=== PATIENT | female | born 1975 ===

== ENCOUNTER 2024-12-15 08:00 | Day surgery (SDC) | payer OTHER ==
[2024-12-08 14:48] VITALS: BP 151/90
[~2024-12-15] VITALS: Ht 157.5 cm; Wt 83.0 kg
[~2024-12-15 08:00] MED LIST: LOSARTAN-HCTZ1 EACH PO; NORETHIND-ETH1 EAC1 PO; SINGULAIR10 MG PO; ZYRTEC10 M3 PO
[2024-12-15] MEDS ORDERED: POVIDONE-IODINE 118 ML BOTT TOP ONE (08:32)
[2024-12-15] MEDS ORDERED: HEMOSTATIC MATRIX 1 KIT KIT TOP ONE (08:32)
[2024-12-15] MEDS ORDERED: DIBUCAINE 30 GM TUBE ONE (08:32)
[2024-12-15] MEDS ORDERED: LIDOCAINE HCL 1%/EPINEPHRINE 20ML VIAL IJ ONE (08:34)
[2024-12-15] MEDS ORDERED: CEFTRIAXONE SODIUM 2,000 MG VIAL ONE (08:34)
[2024-12-15] MEDS ORDERED: METRONIDAZOLE/SODIUM CHLORIDE 500 MG/100 ML PIGGYBACK IV ONE ×2 (08:34→10:19)
[2024-12-15] MEDS ORDERED: NEURONTIN300 MG PO (09:51)
[2024-12-15] MEDS ORDERED: TRAM1TAB98 PO (09:51)
== END 2024-12-15 15:15 | disposition home or self-care (01) ==
LOC: CIR.AMB 08:00
PROVIDERS: ATTEND Surgery
DX: D12.9 Benign neoplasm of anus and anal canal (principal); K62.89 Other specified diseases of anus and rectum; Z88.0 Allergy status to penicillin; Z88.6 Allergy status to analgesic agent